=== PATIENT | female | born 1980 | race Caucasian/White ===

== ENCOUNTER 2020-12-03 10:27 | Outpatient (REF) | payer OTHER, SELFPAY ==
[2020-12-03 10:47] LABS: COVID-19 Test Negative (Negative)
== END 2020-12-03 10:28 | disposition home or self-care (01) ==
LOC: HO.LAB 10:27
PROVIDERS: Visit Provider Internal Medicine
DX: Z20.822 Contact with and (suspected) exposure to COVID-19 (principal)
CPT/HCPCS: 36415; 87635; C9803

== ENCOUNTER 2021-05-07 14:34 | Outpatient (REF) | payer OTHER, SELFPAY ==
[2021-05-08 15:13] LABS: CT PCR NOT DETECTED (Not Detect.); NG PCR NOT DETECTED (Not Detect.)
[2021-05-08 15:24] LABS: BV Int Neg Control Negative (Negative); BV Int Pos Control Positive (Positive)
[2021-05-12 08:21] LABS: HPV mRNA E6/E7 rflx Not Detected (Not Detected)
== END 2021-05-07 14:35 | disposition home or self-care (01) ==
LOC: HO.LAB 14:34
PROVIDERS: Visit Provider Advanced Practice Midwife
DX: Z01.419 Encounter for gynecological examination (general) (routine) without abnormal findings (principal); Z11.51 Encounter for screening for human papillomavirus (HPV); Z11.3 Encounter for screening for infections with a predominantly sexual mode of transmission; Z20.2 Contact with and (suspected) exposure to infections with a predominantly sexual mode of transmission; Z87.42 Personal history of other diseases of the female genital tract
CPT/HCPCS: 87480; 87491; 87510; 87591; 87624; 87660; 88142

== ENCOUNTER 2021-05-11 11:55 | Outpatient (REF) | payer OTHER, SELFPAY ==
[2021-05-11 12:31] LABS: Hematocrit 36.1 % (37-47); Hemoglobin 11.8 g/dl (12.0-16.0); Mean Corpuscular HGB Conc 32.7 g/dl (31.0-35.0); Mean Corpuscular Hemoglobin 25.5 pg (27.0-33.0); Mean Platelet Volume 9.3 fL (9.4-12.3); Platelet Count 463 X10*3/uL (160-400); Red Blood Count 4.63 X10*6/uL (4.20-5.50); Red Cell Distribution Width 15.8 % (11.0-16.0); White Blood Count 8.7 X10*3/uL (4.8-10.8)
[2021-05-12 08:08] LABS: Syphilis Screen Nonreactive (Nonreactive)
[2021-05-12 08:33] LABS: HIV AB/AG Nonreactive (Nonreactive); HIV Num 1 0.06 S/CO (0.00-0.99); ~HepC Num1 0.14 S/CO (0.00-0.79); ~Hepatitis C Antibody Nonreactive (Nonreactive)
[2021-05-12 08:43] LABS: HBsAGNum1 0.17 S/CO (0.00-0.99); Hepatitis B Surface Antigen Negative (Negative)
== END 2021-05-11 11:56 | disposition home or self-care (01) ==
LOC: HO.LAB 11:55
PROVIDERS: Visit Provider Advanced Practice Midwife
DX: Z30.09 Encounter for other general counseling and advice on contraception (principal); Z20.2 Contact with and (suspected) exposure to infections with a predominantly sexual mode of transmission; Z87.42 Personal history of other diseases of the female genital tract
CPT/HCPCS: 36415; 85027; 86780; 86803; 87340; 87389

== ENCOUNTER → 2021-05-14 14:50 | Outpatient (BNVA) | payer OTHER, SELFPAY | PROVIDERS: Visit Provider Advanced Practice Midwife | DX: Z30.42 Encounter for surveillance of injectable contraceptive (principal) | CPT/HCPCS: 96372; 99211 ==

== ENCOUNTER 2021-06-03 10:05 | Emergency (ER) | payer OTHER, SELFPAY ==
--- NOTE | ~2021-06-03 | XR_ITS ---
EXAMINATION: XR WRIST, RIGHT CLINICAL INFORMATION: Right wrist pain COMPARISON: None TECHNIQUE: PA, lateral, and oblique views of the right wrist. FINDINGS: There is no evidence of acute fracture or dislocation of the right wrist. There is some spurring about the first carpal metacarpal joint. Joint spaces are generally maintained. XR/XR wrist RT min 3V IMPRESSION: Mild degenerative change of the first carpal metacarpal joint.
[2021-06-03 10:35] VITALS: BP 99/62; PULSE 84; RESP 18; TEMP 36.4; O2SAT 96; BMI 29.9
--- NOTE | 2021-06-03 11:31 | ED_ITS ---
HPI - Extremity Problem General Chief complaint: Extremity Problem Stated complaint: R hand/arm pain Time Seen by Provider: 06/03/21 11:27 Source: patient Limitations: no limitations History of Present Illness HPI Narrative: Patient presents complaining of right upper extremity pain that is been ongoing on and off for the past year. 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 Pain is located pr edominantly at the base of the 1st and the right wrist. At times pain extends to the right elbow and right shoulder. Patient has had some relief with KT tape that her boyfriend has applied. The patient has never seen anybody for evaluation of this right wrist and right upper extremity pain. Pain is 7/10. Patient had to call out of work secondary to pain. No other complaints at this time. Related Data Home Medications Medication Instructions Recorded Confirmed melatonin 5 mg capsule 5 mg PO .at night cap 05/07/21 05/07/21 Previous Rx's Medication Instructions Recorded medroxyprogesterone 150 mg/mL 150 mg IM Q12W #1 ml 05/07/21 intramuscular suspension (Depo-Provera) naproxen 500 mg tablet (Naprosyn) 500 mg PO BID PRN #20 tab 06/03/21 Allergies Allergy/AdvReac Type Severity Reaction Status Date / Time No Known Allergies Allergy Verified 05/07/21 14:50 Review of Systems Constitutional: Constitutional: Denies chills and Denies fever(s) Cardiovascular: Cardiovascular: Denies chest pain and Denies dyspnea Respiratory: Respiratory: Denies dyspnea Gastrointestinal: Gastrointestinal: Denies nausea and Denies vomiting Musculoskeletal: Musculoskeletal: Denies back pain, Reports arthralgias, Denies joint swelling and Denies numbness Comments: Right wrist pain right shoulder right elbow pain Neurologic: Denies numbness Allergic/Immunologic: Allergic/Immunologic: Denies urticaria PMFSH Past Medical History Attestation statement: The following information was validated with the patient. Medical History PCOS (polycystic ovarian syndrome) Surgical History Hx of section Family History Family History Mother Diabetes Rheumatic arteritis Paternal Grandmother Breast cancer Maternal Grandmother Alzheimer disease Social History Social History Household Members: Spouse Household Members Other:: daughter Housing: Apartment Alcohol intake: current Patient Tobacco Use Status: Former Tobacco user Tobacco use type: Cigarette Cigarettes Per Day: 7 Years Smoked: 24 Advance Directives: No Advance Directives Information Provided: No Patient : No service: No Current occupational status: unemployed Sexual orientation: Straight/Heterosexual Gender identity: Female Physical Exam Vital Signs: Vital Signs: Last Vital Signs Temp 97.5 F 06/03/21 10:35 Pulse 84 06/03/21 10:35 Resp 18 06/03/21 10:35 BP 99/62 06/03/21 10:35 Pulse Ox 96 06/03/21 10:35 Body Mass Index 29.9 vital signs have been reviewed as normal and appeared to be correct. Blood pressure normal. Heart rate normal. Respiration rate normal. Temperature normal. Oxygen saturation normal. Appearance: Alert. Oriented X3. No acute distress. Head: Normal external exam. Normocephalic. Atraumatic. Eyes: PERRLA. EOMI. Conjunctiva and sclera normal. Eyelids normal. ENT: Pharynx normal. Uvula midline. Moist mucous membranes. Neck: Soft full range of motion, no JVD CVS: Heart regular rate and rhythm no murmurs and rubs Respiratory: Breath sounds are clear to auscultation bilaterally. No accessory muscle use noted. Skin: Skin warm and dry. Normal skin color. Normal skin turgor. No rashes/lesions/lacerations noted. Extremities: Patient has tenderness at the radial aspect of the right wrist no obvious snuffbox tenderness pain increases with any range of motion in flexion extension of the wrist right elbow medial lateral epicondyles non tenderness full range of motion. No areas of erythema or induration or lymphangitis. Negative Tinel's or Phalen's test Neuro: Oriented X 3. No motor deficit. No sensory deficit. Reflexes normal. Course Course Course Narrative: Overuse injury right wrist Right wrist tendinitis De Quervain tenosynovitis Carpal tunnel syndrome Symptoms seem consistent with overuse injury of the right wrist will get an x- ray at this time follow-up will be needed splint right wrist Right wrist splint applied follow-up with orthopedics as needed MDM - Extremity (Nontraumatic) Imaging Data wrisit : Radiologist's impression: [facility] [address] [place] [address] XRay Report Signed Patient: Ailyn Haney MR#: [id number] : 1980 Acct:[id number] Age/Sex: 41 / F ADM Date: 06/03/21 Loc: HO.ED Attending Dr: Ordering Physician: Bakari Enriquez Date of Service: 06/03/21 Procedure(s): XR wrist RT min 3V Accession Number(s): [id number] cc: Bakari Enriquez ~ EXAMINATION: XR WRIST, RIGHT CLINICAL INFORMATION: Right wrist pain? COMPARISON: None? TECHNIQUE: PA, lateral, and oblique views of the right wrist. FINDINGS: There is no evidence of acute fracture or dislocation of the right wrist. There is some spurring about the first carpal metacarpal joint. Joint spaces are generally maintained. XR/XR wrist RT min 3V IMPRESSION: Mild degenerative change of the first carpal metacarpal joint. Dictated By: Karthikeyan Fontaine MD Signed By: <Electronically signed by Karthikeyan Fontaine MD in OV> 06/03/21 1225 DD/ 1130 Discharge Plan Discharge Clinical Impression: Right wrist tendinitis Patient Disposition: Home, Self-Care Instructions: Tendinitis (ED) Additional Instructions: X-rays negative for any acute injuries some degenerative changes noted Rest ice splint elevation Follow-up with orthopedics Prescriptions: New naproxen [Naprosyn] 500 mg tablet 500 mg PO BID PRN (Reason: pain) Qty: 20 RF: 0 No Action melatonin 5 mg capsule 5 mg PO .at night RF: 0 medroxyprogesterone [Depo-Provera] 150 mg/mL suspension 150 mg IM Q12W Qty: 1 RF: 5 Referrals: Albino Overton MD [Physician] - 2 days Stand Alone Forms: Work/School Release Interventions: ED Discharge Assessment Last Done: 06/03/21 13:08 Discharge Date/Time: 06/03/21 13:09
== END 2021-06-03 13:09 | disposition home or self-care (01) ==
PROVIDERS: Emergency Provider Emergency Medicine Emergency Medical Services
DX: M65.241 Calcific tendinitis, right hand (principal)
CPT/HCPCS: 73110; 99284

== ENCOUNTER → 2021-08-09 09:00 | Outpatient (BNVA) | payer OTHER, SELFPAY | PROVIDERS: Visit Provider Advanced Practice Midwife | DX: Z30.42 Encounter for surveillance of injectable contraceptive (principal) | CPT/HCPCS: 96372; 99211 ==